=== PATIENT | female | born 1995 | race Caucasian/White ===

== ENCOUNTER 2021-02-19 02:32 | Emergency (ER) | payer OTHER ==
[~2021-02-19 02:32] MED LIST: CLEOCIN HCL300 MG PO
[2021-02-19 03:00] LABS: HEMOGLOBIN 14.4 gm/dl (12.3-15.3); RED BLOOD COUNT 4.81 M/UL (4.00-5.10); WHITE BLOOD COUNT 7.4 K/UL (4.5-11.0)
[2021-02-19 03:29] LABS: BUN/CREATININE RATIO 14 (0-10)
[2021-02-19] MEDS ORDERED: OMNICEF 300 MG300 MG PO (04:00)
== END 2021-02-19 05:34 | disposition short-term general hospital (02) ==
LOC: ER1 02:32
PROVIDERS: Physician Assistant
DX: T43.622A Poisoning by amphetamines, intentional self-harm, initial encounter (principal); N39.0 Urinary tract infection, site not specified; F41.9 Anxiety disorder, unspecified; Z20.822 Contact with and (suspected) exposure to COVID-19; X83.8XXA Intentional self-harm by other specified means, initial encounter
CPT/HCPCS: 80053; 80307; 81001; 83735; 84703; 85025; 87086; 93005; 96372; 99285; G0480; J0696; U0002